=== PATIENT | male | born 1990 | race African-American/Black ===

== ENCOUNTER 2017-08-16 19:35 | Emergency (ER) | payer SELFPAY ==
[~2017-08-16] VITALS: Ht 182.9 cm; Wt 90.7 kg
[2017-08-16 20:17] VITALS: BP 133/92
[2017-08-16] MEDS ORDERED: PROAIR HFA8.5 GM INH (20:37)
[2017-08-16] MEDS ORDERED: AMOX1TAB61 PO (20:37)
[2017-08-16] MEDS ORDERED: INHA1SPA94 MC (20:37)
[2017-08-16] MEDS ORDERED: PRED20TA PO (20:37)
--- NOTE | 2017-08-16 20:37 | PHYS DOC ---
Past Medical History Past Medical History: Asthma Past Surgical History: No Surgical History Smoking: Cigarettes Alcohol Use: None Drug Use: None Adult General Chief Complaint Chief Complaint: Congestion HPI HPI Patient is a 27 year old male presents to the emergency department stating that he's had a 2 day history of nasal congestion with a cough. Patient states that he does have a history of asthma however does not have any types of inhalers at home. Patient states that he has not had any fever, chills or any nausea or vomiting. He denies taking anything [id number] to help with the congestion. Review of Systems Review of Systems Constitutional: Denies fever or chills [] Eyes: Denies change in visual acuity, redness, or eye pain [] HENT: nasal congestion denies sore throat [] Respiratory: cough denies shortness of breath [] Cardiovascular: No additional information not addressed in HPI [] GI: Denies abdominal pain, nausea, vomiting, bloody stools or diarrhea [] : Denies dysuria or hematuria [] Musculoskeletal: Denies back pain or joint pain [] Integument: Denies rash or skin lesions [] Neurologic: Denies headache, focal weakness or sensory changes [] Endocrine: Denies polyuria or polydipsia [] Physical Exam Physical Exam Constitutional: Well developed, well nourished, no acute distress, non-toxic appearance. [] HENT: Normocephalic, atraumatic, bilateral external ears normal, oropharynx moist, no oral exudates, nose normal. Bilateral tympanic membranes appear to be normal. Throat with postnasal drip and redness noted no erythematous no exudate noted. Bilateral nares appears to be swollen. Patient with bilateral maxillary and frontal sinus tenderness. Eyes: PERRLA, EOMI, conjunctiva normal, no discharge. [] Neck: Normal range of motion, no tenderness, supple, no stridor. [] Cardiovascular:Heart rate regular rhythm, no murmur [] Lungs & Thorax: Left upper and lower anterior posterior with wheezes noted. Right side appears to be clear. Skin: Warm, dry, no erythema, no rash. [] Back: No tenderness Extremities: No tenderness, no cyanosis, no clubbing, ROM intact, no edema. [] Neurologic: Alert and oriented X 3, normal motor function, normal sensory function, no focal deficits noted. [] Psychologic: Affect normal, judgement normal, mood normal. [] EKG EKG [] Radiology/Procedures Radiology/Procedures [] Course & Med Decision Making Course & Med Decision Making Pertinent Labs and Imaging studies reviewed. (See chart for details) Patient will be discharged home with a pro-air, prednisone, and a prescription for Augmentin. Patient was instructed to use Sudafed and Mucinex DM over-the- counter as prescribed by [facility] [employer] [facility]. Also recommended plenty of fluids. Recommended Tylenol or ibuprofen for fever chills or generalized body aches and discomfort. Patient will be discharged home in stable condition signs and symptoms to return back to emergency department been provided. Recommended following up with her primary care physician in the next 5-7 days. I concerns been answered at patient's bedside. [] Dragon Disclaimer Dragon Disclaimer This electronic medical record was generated, in whole or in part, using a voice recognition dictation system. Departure Departure Impression: Primary Impression: Asthma exacerbation Additional Impression: Sinusitis Disposition: 01 HOME, SELF-CARE Condition: STABLE Patient Instructions: Asthma, Adult, [id number], Sinusitis, [id number] Additional Instructions: Activity as tolerated. Medication as prescribed. Albuterol may be used for wheezing or shortness of air this medication may be used every 4-6 hours as needed to not use it more frequently than prescribed. Sudafed and Mucinex DM may be taken as instructed by [employer] over-the- counter. Drink plenty of fluids. Tylenol or ibuprofen for pain and discomfort. Follow-up to primary care physician in the next 3-5 days. Return back to emergency prior signs symptoms of become worse. Scripts Inhaler, Assist Devices (Compact Space Chamber) 1 Each Spacer EACH MC, #1 Prov: LAVERNE ALBRECHT APRN 08/16/17 Albuterol Sulfate (PROAIR HFA INHALER) 8.5 Gm Hfa.aer.ad 1 PUFF INH PRN Q6HRS Y for SHORTNESS OF BREATH, #1 INHALER 0 Refills Prov: LAVERNE ALBRECHT APRN 08/16/17 Prednisone (PREDNISONE) 20 Mg Tablet 40 MG PO DAILY for 7 Days, #14 TAB Prov: LAVERNE ALBRECHT APRN 08/16/17 Amoxicillin/Potassium Clav (AUGMENTIN 875-125 TABLET) 1 Each Tablet 1 TAB PO BID, #20 TAB Prov: LAVERNE ALBRECHT SURVEY ENGINEER 08/16/17 Problem Qualifiers Additional Impression: Sinusitis Sinusitis location: unspecified location Chronicity: unspecified Qualified Codes: J32.9 - Chronic sinusitis, unspecified LAVERNE ALBRECHT SURVEY ENGINEER Aug 16, 2017 20:37
[2017-08-16] MEDS ORDERED: IPRATRPIUM/ALBUTEROL 0.5/2.5MG 3 ML NEBU. NEB ONE (21:15)
== END 2017-08-16 21:44 | disposition home or self-care (01) ==
LOC: ER 19:35
DX: J45.901 Unspecified asthma with (acute) exacerbation (principal); J32.1 Chronic frontal sinusitis; J32.0 Chronic maxillary sinusitis; F17.210 Nicotine dependence, cigarettes, uncomplicated
CPT/HCPCS: 94640; 99283; J7620

== ENCOUNTER 2017-12-07 12:26 | Emergency (ER) | payer SELFPAY | END 2017-12-07 13:11 | disposition home or self-care (01) | LOC: ER 12:26 | DX: S63.92XA Sprain of unspecified part of left wrist and hand, initial encounter (principal); J45.909 Unspecified asthma, uncomplicated; V43.52XA Car driver injured in collision with other type car in traffic accident, initial encounter; Y93.I9 Activity, other involving external motion; Y92.410 Unspecified street and highway as the place of occurrence of the external cause; Y99.8 Other external cause status | CPT/HCPCS: 99282 ==